=== PATIENT | female | born 1985 | race Two or more races ===

== ENCOUNTER 2017-12-05 15:53 | Inpatient (IN) | payer OTHER ==
[~2017-12-05] VITALS: Ht 165.1 cm; Wt 103.2 kg
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
[2017-12-05] MEDS ORDERED: MORPHINE SULFATE INJ 4 MG/ML DISP.SYRIN ONE ×2 (16:20→18:05)
[2017-12-05] MEDS ORDERED: ONDANSETRON HCL/PF 4 MG/2 ML VIAL ONE (16:20)
[2017-12-05 16:27] LABS: BASOPHILS # (AUTO) 0.1 /CMM (0.0-0.2); BASOPHILS % (AUTO) 0.6 % (0.0-2.0); EOSINOPHILS % (AUTO) 0.8 % (0.0-6.0); HEMATOCRIT 42 % (33-45); HEMOGLOBIN 14.5 g/dL (11.5-14.8); LYMPHOCYTES # (AUTO) 1.5 /CMM (0.8-4.8); LYMPHOCYTES % (AUTO) 15.9 % (20.0-44.0); MEAN CORPUSCULAR HGB CONC 35 g/dl (31.0-36.0); MEAN CORPUSCULAR VOLUME 84 fL (82-100); MONOCYTES # (AUTO) 0.4 /CMM (0.1-1.30); MONOCYTES % (AUTO) 3.9 % (2.0-12.0); NEUTROPHILS % (AUTO) 78.8 % (43.0-81.0); PLATELET COUNT (AUTO) 304 /CMM (150-450); RED BLOOD CELL COUNT(AUTO) 5.01 MIL/uL (4.0-5.2); WHITE BLOOD COUNT (AUTO) 9.1 K/uL (4.3-11.0)
[2017-12-05] MEDS ORDERED: MORPHINE SULFATE INJ 2 MG/ML DISP.SYRIN IV ONE ×2 (16:30→18:30)
[2017-12-05] MEDS ORDERED: IV NS 0.9% 1,000 ML BAG IV ONE (16:30)
[2017-12-05] MEDS ORDERED: ONDANSETRON HCL/PF 4 MG/2 ML VIAL IVP ONE (16:30)
--- NOTE | 2017-12-05 16:30 | NUR ---
IV ACCESS STARTED. BLOOD DRAWN FOR LABS. MEDICATED ORDERED.
[2017-12-05 16:38] LABS: CALCIUM, SERUM 8.8 mg/dL (8.5-10.1); POTASSIUM 4.2 mmol/L (3.5-5.1)
[2017-12-05 16:42] LABS: INR 0.93 (0.85-1.15)
--- NOTE | 2017-12-05 17:05 | NUR ---
PT TAKEN TO CT.
--- NOTE | 2017-12-05 17:51 | NUR ---
PAGED ON-CALL FOR [facility] FOR CONSULT
--- NOTE | 2017-12-05 18:00 | NUR ---
C-SPINE PRECUATIONS IMPLEMENTED.
--- NOTE | 2017-12-05 18:15 | NUR ---
FC INITIATED. WELL TOLERATED.
--- NOTE | 2017-12-05 18:17 | NUR ---
REPORT GIVEN TO FELIX WU FOR MOON MS 204.
--- NOTE | 2017-12-05 18:25 | NUR ---
TAYLER AT BS.
--- NOTE | 2017-12-05 18:45 | NUR ---
RN MS NOTES RECEIVED PT FROM E.R. STAFF VIA REAL, AWAKE, ALERT AND ORIENTED, ASSISTED TO BED, PROPER BODY ALIGNMENT MAINTAINED AT ALL TIMES, NECK COLLAR BRACE IN PLACE, WITH COMPLAINT OF LOW BACK PAIN 01/18, RESPIRATIONS NORMAL AND NOT LABORED ON ROOM AIR, ROOM SET UP ORIENTATION PROVIDED TO PT, VERBALIZED UNDERSTANDING, PT AND STAFF INFORMED THAT PT SHOULD WEAR NECK BRACE COLLAR AT ALL TIMES AND MUST BE FLAT IN BED AT ALL TIMES, F/C IN PLACE AND DRAINING WELL WITH CLEAR, YELLOW URINE, VITAL SIGNS TAKEN AND RECORDED, AWAITING ADMITTING ORDERS FROM .
[2017-12-05] MEDS ORDERED: METH-406 PO (18:46)
--- NOTE | 2017-12-05 18:46 | NUR ---
CALLED ADMITTING NURSE JAZMIN FOR CERVICAL COLLAR TO BE CONTINUED TO BE KEPT IN PLACE.
[2017-12-05 19:08] VITALS: BP 118/82
[2017-12-05] MEDS ORDERED: MORPHINE SULFATE INJ 4 MG/ML DISP.SYRIN IV STA (19:37)
--- NOTE | 2017-12-05 19:40 | NUR ---
MS RN INITIAL NOTE PT IS IN BED AWAKE AND ALERT X4. ABLE TO MAKE NEEDS KNOWN. FAMILY AT BEDSIDE. PT IS IN A CERVICAL COLLAR, ORDERS NOT TO REMOVE CERVICAL COLLAR AND TO KEEP PT IN A FLAT LAYING POSITION UNTIL ORTHO CONSULT. PT IS ABLE TO MOVE ARMS WITH STRONG ARM BUDGET AND POLICY ANALYST AND ABLE TO MOVE TOES WITH STRONG PULSES AND SENSATION. NO SIGNS OF SOB OR DISTRESS, BREATHING EVENLY AND UNLABORED ON RA. COMPLAINTS OF PAIN ON LEFT LOWER BACK. RADIOLOGY HERE TO TAKE PT TO MRI, CALLED BRIANNA HERNÁNDEZ FOR ADMITTING ORDERS AND PAIN MEDS, AWAITING ORDERS TO BE ENTERED TO GIVE MORPHINE BEFORE RADIOLOGY TAKES HER DOWN. BED IS IN LOW AND LOCKED POSITION, CALL LIGHT WITHIN REACH. WILL CONTINUE TO MONITOR PT
[2017-12-05] MEDS ORDERED: MAGNESIUM HYDROXIDE 30 ML UDC PO PRN (20:00)
[2017-12-05] MEDS ORDERED: ONDANSETRON HCL/PF 4 MG/2 ML VIAL IVP PRN (20:00)
[2017-12-05] MEDS ORDERED: ZOLPIDEM TARTRATE 5 MG TABLET PO PRN (20:00)
[2017-12-05] MEDS ORDERED: Z GUARD REMEDY 2 OZ OINT TP PRN (20:00)
[2017-12-05] MEDS ORDERED: LORAZEPAM INJ 2 MG/ML VIAL IV PRN (20:00)
[2017-12-05] MEDS ORDERED: MAG HYDROX/AL HYDROX/SIMETH 30 ML UDC PO PRN (20:00)
[2017-12-05] MEDS ORDERED: MORPHINE SULFATE INJ 2 MG/ML DISP.SYRIN IV PRN (20:00)
[2017-12-05] MEDS ORDERED: ACETAMINOPHEN 325 MG TABLET PO PRN (20:00)
--- NOTE | 2017-12-05 20:00 | NUR ---
MS RN NOTE PT WAS MEDICATED AND TAKEN DOWN BY MRI WITH CERVICAL COLLAR INTACT
[2017-12-05 20:01] VITALS: BP 114/82
--- NOTE | 2017-12-05 22:00 | NUR ---
MS RN NOTE PT RETUNED FROM MRI IN STABLE CONDITION, CERVICAL COLLAR IN PLACE
[2017-12-05] MEDS: IV NS 0.9% 1,000 ML IV PRN (23:23)
[2017-12-06] MEDS: HYDROMORPHONE INJ 2 MG/ML DISP.SYRIN IV PRN ×5 (00:09→19:12)
[2017-12-06 06:27] LABS: BASOPHILS % (AUTO) 0.1 % (0.0-2.0); EOSINOPHILS % (AUTO) 0.3 % (0.0-6.0); HEMATOCRIT 39 % (33-45); HEMOGLOBIN 13.3 g/dL (11.5-14.8); LYMPHOCYTES # (AUTO) 1.1 /CMM (0.8-4.8); LYMPHOCYTES % (AUTO) 10.1 % (20.0-44.0); MEAN CORPUSCULAR HGB CONC 34 g/dl (31.0-36.0); MEAN CORPUSCULAR VOLUME 87 fL (82-100); MONOCYTES # (AUTO) 0.6 /CMM (0.1-1.30); MONOCYTES % (AUTO) 5.6 % (2.0-12.0); NEUTROPHILS # (AUTO) 8.8 /CMM (1.8-8.9); NEUTROPHILS % (AUTO) 83.9 % (43.0-81.0); PLATELET COUNT (AUTO) 254 /CMM (150-450); RED BLOOD CELL COUNT(AUTO) 4.52 MIL/uL (4.0-5.2); WHITE BLOOD COUNT (AUTO) 10.4 K/uL (4.3-11.0)
--- NOTE | 2017-12-06 06:46 | NUR ---
MS RN CLOSING NOTE PT IS IN BED RESTING, FAMILY AT BEDSIDE. NO SIGNS OF SOB OR DISTRESS, BREATHING EVENLY AND UNLABORED ON RA. F/C INTACT AND DRAINING. CERVICAL COLLAR IN PLACE, PT CONTINUES TO LAY FLAT. CONTINUED TO EDUCATE PT ABOUT THE NEED TO LAY FLAT AND MAINTAIN COLLAR IN PLACE. PAIN MANAGED WITH MEDICATION. PENDING ORTHO CONSULT. ALL NEEDS WERE ANTICIPATED AND MET. BED IS IN LOW AND LOCKED POSITION, CALL LIGHT WITHIN REACH. WILL ENDORSE TO DAYSHIFT
[2017-12-06 07:03] LABS: CALCIUM, SERUM 8.1 mg/dL (8.5-10.1); CREATININE 0.6 mg/dL (0.6-1.3); PHOSPHORUS 3.3 mg/dL (2.5-4.9); POTASSIUM 3.9 mmol/L (3.5-5.1)
[2017-12-06 07:06] LABS: THYROID STIMULATING HORMONE 8.468 uIU/mL (0.358-3.74)
--- NOTE | 2017-12-06 07:25 | NUR ---
MS RN OPENING NOTE PT IS IN BED RESTING, EASILY AROUSABLE ABLE TO MAKE NEEDS KNOWN, FAMILY AT BEDSIDE. NO SIGNS OF SOB OR DISTRESS RESPIRATIONS EVEN AND UNLABORED ON RA.IV ACCESS PATENT AND INTACT NO REDNESS OR INFILTRATION F/C INTACT AND DRAINING. CERVICAL COLLAR IN PLACE, PT CONTINUES TO LAY FLAT. CONTINUED TO EDUCATE ABOUT THE NEED TO LAY FLAT AND MAINTAIN COLLAR IN PLACE. PAIN MANAGED WITH MEDICATION ORDERED. PENDING ORTHO CONSULT. ALL NEEDS WERE ANTICIPATED AND MET. BED IS IN LOW AND LOCKED POSITION, CALL LIGHT WITHIN REACH. WILL ENDORSE TO DAYSHIFT Addendum: 12/06/17 at 1837 by CLARE VARNER RN RN NOTES CORRECTION OF ENTRY WILL CONTINUE TO MONITOR PT
[2017-12-06 08:00] VITALS: BP 132/77
[2017-12-06] MEDS: PANTOPRAZOLE 40 MG VIAL IV SCH (08:34)
--- NOTE | 2017-12-06 10:30 | NUR ---
RN NOTES/ORTHO CONSULT PT SEEN AND EXAMINED BY DR. VALLEJO WITH ORDERS WILL CONTINUE TO CARRY OUT MADE MD AWARE OF AWAITING BRACE PER MD TO HOLD AMBULATION AND SITTING UP IN BED UNTIL BRACE AVAILABLE CALLED [facility] AND LEFT MESSAGES WILL CONTINUE TO FOLLOW UP
--- NOTE | 2017-12-06 12:00 | NUR ---
RN NOTES URINE SPECIMEN COLLECTED ORDERED, LAB CALLED FOR DIRECTOR FRAUD WILL CONTINUE TO MONITOR
--- NOTE | 2017-12-06 13:30 | NUR ---
RN NOTES/BACK BRACE F/U PT SEEN AND EXAMINED BY DR. HERNÁNDEZ NOTIFIED OF DR VALLEJO ORDERS WILL CONTINUE TO CARRY OUT MADE MD AWARE OF AWAITING BRACE PER ORTHO TO HOLD AMBULATION AND SITTING UP IN BED UNTIL BRACE AVAILABLE CALLED [facility] AND LEFT MESSAGES MADE DNP AWARE WILL CONTINUE TO FOLLOW UP
[2017-12-06] MEDS: IV NS 0.9% 1,000 ML IV PRN (17:24)
--- NOTE | 2017-12-06 18:37 | NUR ---
MS RN CLOSING NOTE PT IS IN BED RESTING, EASILY AROUSABLE ABLE TO MAKE NEEDS KNOWN, FAMILY AT BEDSIDE. NO SIGNS OF SOB OR DISTRESS, RESPIRATIONS EVEN AND UNLABORED ON RA.IV ACCESS PATENT AND INTACT NO REDNESS OR INFILTRATION F/C INTACT AND DRAINING. CERVICAL COLLAR REMOVED ORDERED, PT ABLE TO TOLERATE HOB AT 45 DEGREE ANGLE. CONTINUED TO EDUCATE ABOUT MOBILITY RESTRICTIONS UNTIL BRACE ARRIVES AND PT EVAL IS COMPLETE. PAIN MANAGED WITH MEDICATION ORDERED. ALL NEEDS WERE ANTICIPATED AND MET. BED IS IN LOW AND LOCKED POSITION, SAFETY MEASURES IN PLACE, CALL LIGHT WITHIN REACH. WILL CONTINUE TO MONITOR AND ENDORSE TO TRANSPORTATION ASSISTANT FOR CONTINUITY OF CARE
--- NOTE | 2017-12-06 19:45 | NUR ---
MS RN INITIAL NOTE PT IS IN BED SLEEPING EASILY AROUSED, PAIN MEDS WERE GIVEN. FAMILY AT BEDSIDE. NO SIGNS OF SOB OR DISTRESS, BREATHING EVENLY AND UNLABORED ON RA. IV ACCESS IS INTACT AND PATENT WITH FLUIDS INFUSING. PT HAS MOBILITY RESTRICTIONS UNTIL BRACE IS RECEIVED. BED IS IN LOW AND LOCKED POSITION, CALL LIGHT WITHIN REACH. WILL CONTINUE TO MONITOR PT.
[2017-12-06 20:00] VITALS: BP 114/66
[2017-12-07] MEDS: HYDROMORPHONE INJ 2 MG/ML DISP.SYRIN IV PRN ×5 (00:41→23:48)
[2017-12-07 06:48] LABS: BASOPHILS % (AUTO) 0.2 % (0.0-2.0); EOSINOPHILS % (AUTO) 0.6 % (0.0-6.0); HEMATOCRIT 39 % (33-45); HEMOGLOBIN 13.4 g/dL (11.5-14.8); LYMPHOCYTES # (AUTO) 1.2 /CMM (0.8-4.8); LYMPHOCYTES % (AUTO) 12.8 % (20.0-44.0); MEAN CORPUSCULAR HGB CONC 34 g/dl (31.0-36.0); MEAN CORPUSCULAR VOLUME 86 fL (82-100); MONOCYTES # (AUTO) 0.5 /CMM (0.1-1.30); MONOCYTES % (AUTO) 4.9 % (2.0-12.0); NEUTROPHILS # (AUTO) 7.9 /CMM (1.8-8.9); NEUTROPHILS % (AUTO) 81.5 % (43.0-81.0); PLATELET COUNT (AUTO) 246 /CMM (150-450); RDW COEFFICIENT OF VARIATION 13.7 (11.5-15.0); RED BLOOD CELL COUNT(AUTO) 4.52 MIL/uL (4.0-5.2); WHITE BLOOD COUNT (AUTO) 9.7 K/uL (4.3-11.0)
--- NOTE | 2017-12-07 06:57 | NUR ---
MS RN CLOSING NOTE PT IS IN BED SLEEPING, EASILY AROUSED. NO SIGNS OF SOB OR DISTRESS, BREATHING EVENLY AND UNLABORED ON RA. MOBILITY RESTRICTIONS IN PLACE. IV IS INTACT AND PATENT WITH FLUIDS INFUSING. SPRINGER CATHETER IS INTACT AND DRAINING. NO ACUTE CHANGES THROUGHOUT THE SHIFT. BED IS IN LOW AND LOCKED POSITION, CALL LIGHT WITHIN REACH. WILL ENDORSE TO DAYSHIFT.
[2017-12-07 07:01] LABS: CALCIUM, SERUM 8.4 mg/dL (8.5-10.1); CREATININE 0.6 mg/dL (0.6-1.3); POTASSIUM 3.9 mmol/L (3.5-5.1)
[2017-12-07 07:18] LABS: INR 0.96 (0.87-1.13)
--- NOTE | 2017-12-07 07:33 | NUR ---
RN OPENING NOTES RECEIVED PATIENT IS IN BED SLEEPING, EASILY AROUSED. BED IN LOW SEMIFOWLERS POSITION. NO SIGNS OF SOB OR DISTRESS, BREATHING EVENLY AND UNLABORED ON RA. MOBILITY RESTRICTIONS IN PLACE. IV IS INTACT AND PATENT WITH FLUIDS INFUSING. SPRINGER CATHETER IS INTACT AND DRAINING. KEPT HER SAFE AND COMFORTABLE. BED IS IN LOW AND LOCKED POSITION, SIDERAILS UP, CALL LIGHT WITHIN REACH. WILL CONTINUE TO MONITOR ACCORDINGLY.
[2017-12-07 08:00] VITALS: BP 118/73
[2017-12-07] MEDS: PANTOPRAZOLE 40 MG VIAL IV SCH (08:43)
--- NOTE | 2017-12-07 09:45 | NUR ---
CALLED [facility] REGARDING THE JEWITT EXTENSION BRACE. SPOKE WITH BERNA, SHE SAID THERE'S NO AVAILABLE SIZE FOR THE PATIENT, THEY HAVE SMALL SIZE ONLY, PATIENT NEEDS LARGE OR X-LARGE. INFORMED CASE MANAGEMENT.
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
--- NOTE | 2017-12-07 10:35 | NUR ---
CALLED [facility], THEY NEED TO MEASURE THE PATIENT. FAXED 'S ORDER. Addendum: 12/07/17 at 1307 by CONOR PEARL VERIFIED WITH KIMI, FAXED FORM RECEIVED. THEY WILL MEASURE PATIENT TODAY
--- NOTE | 2017-12-07 10:43 | NUR ---
RN NOTES NOTIFIED PAYAM DUVALS REGARDING THE BRACE.
[2017-12-07] MEDS: IV NS 0.9% 1,000 ML IV PRN (12:25)
[2017-12-07 16:00] VITALS: BP 123/76
--- NOTE | 2017-12-07 17:17 | NUR ---
RN NOTES NOTIFIED PAYAM BAUMAN NP REGARDING THE TROY BRACE. ORDERS TO MAKE PATIENT WEAR IT UNTIL SHE FOLLOWS UP IN OFFICE WITH DR VALLEJO IN 1-2 WEEKS.
--- NOTE | 2017-12-07 19:27 | NUR ---
RN CLOSING NOTES PATIENT IN STABLE CONDITION. ALL NEEDS ATTENDED AND PROVIDED. BODY BRACE IN PLACE. KEPT PATIENT SAFE AND COMFORTABLE. BED IN LOW, LOCKED POSITION, SIDERAILS UPX2, CALL LIGHT IN REACH. ENDORSED TO NIGHT RN FOR MOON.
--- NOTE | 2017-12-07 19:30 | NUR ---
RN NOTES RECEIVED PATIENT IN BED AWAKE, AO X 3 , ABLE TO MAKE NEEDS KNOWN. NO ACUTE DISTRESS NOTED. MONITORED FOR PAIN. TROY BRACE IN PLACE ON TORSO. SAFETY REMINDERS GIVEN. ON LOW BED WITH BILATERAL UPPER SIDE RAILS UP. CALL MARIN WITHIN EASY REACH. WILL CONTINUE TO MONITOR.
[2017-12-07 20:00] VITALS: BP 117/80
[2017-12-08] MEDS: IV NS 0.9% 1,000 ML IV PRN (02:33)
[2017-12-08] MEDS: HYDROMORPHONE INJ 2 MG/ML DISP.SYRIN IV PRN ×3 (05:25→18:14)
--- NOTE | 2017-12-08 06:22 | NUR ---
RN NOTES PATIENT ASLEEP, EASILY AROUSABLE. RESPIRATIONS EVEN. NO SIGNS OF PAIN NOTED. NEEDS ATTENDED. SAFETY PRECAUTIONS AND COMFORT MEASURES IN PLACE. WILL GIVE REPORT TO DAY SHIFT FOR CONTINUITY OF CARE.
--- NOTE | 2017-12-08 07:30 | NUR ---
RN OPENING NOTES RECEIVED PT. PT IS STABLE AND RESTING IN BED. A/OX4. NO S/S OF RESP DISTRESS OR SOB. PT C/O PAIN 7/10 RADIATING FROM BACK. WILL MANAGE PHARMACOLOGICALLY. FC IN PLACE AND PATENT. PER MD NOTE, PT IS NOT TO SIT UPRIGHT AT 90 DEGREES AND TO AVOID ANTICOAGULANT MX. SAFETY MEASURES IN PLACE, CALL LIGHT WITHIN REACH. WILL CONTINUE TO MONITOR.
[2017-12-08 08:00] VITALS: BP 122/75
[2017-12-08] MEDS: PANTOPRAZOLE 40 MG VIAL IV SCH (08:15)
[2017-12-08] MEDS: HYDROCODONE/APAP 5/325MG 1 EACH TABLET PO PRN ×2 (08:23→19:22)
[2017-12-08 09:00] VITALS: BP 122/75
--- NOTE | 2017-12-08 11:10 | NUR ---
SW met with pt. bedside again to inquire if the family is homeless. Pt. informed SW that they are not homeless. They live in [place] and will be going back to [place] once pt. is medically cleared for discharge. Pt. did not want any resources at this time.
[2017-12-08] MEDS ORDERED: NAPR-1164 PO (12:21)
[2017-12-08] MEDS ORDERED: METH500T PO (12:21)
[2017-12-08] MEDS: DOCUSATE SODIUM 100 MG CAPSULE PO SCH (14:56)
[2017-12-08 16:00] VITALS: BP 123/68
--- NOTE | 2017-12-08 18:51 | NUR ---
RN CLOSING NOTES PATIENT AWAKE ALERT AND VERBALLY RESPONSIVE. RESPIRATIONS EVEN. NO SIGNS OF PAIN NOTED. NEEDS ATTENDED. SAFETY PRECAUTIONS AND COMFORT MEASURES IN PLACE. WILL GIVE REPORT TO QUARRY SUPERVISOR OPEN PIT FOR CONTINUITY OF CARE.
--- NOTE | 2017-12-08 19:30 | NUR ---
RECEIVED PATIENT IN BED AWAKE, AO X 3 , ABLE TO MAKE NEEDS KNOWN. NO ACUTE DISTRESS NOTED. MONITORED FOR PAIN. TROY BRACE IN PLACE ON TORSO. IV SITE PATENT, INTACT; IVF INFUSING ORDERED. SAFETY REMINDERS GIVEN. ON LOW BED WITH BILATERAL UPPER SIDE RAILS UP. CALL MARIN WITHIN EASY REACH. WILL CONTINUE TO MONITOR. FAMILY AT BEDSIDE.
[2017-12-08 20:00] VITALS: BP 106/72
[2017-12-09] MEDS: HYDROMORPHONE INJ 2 MG/ML DISP.SYRIN IV PRN ×4 (00:51→18:01)
[2017-12-09] MEDS: IV NS 0.9% 1,000 ML IV PRN (03:56)
--- NOTE | 2017-12-09 06:12 | NUR ---
PATIENT ASLEEP, EASILY AROUSABLE. RESPIRATIONS EVEN. NO SIGNS OF PAIN NOTED. NEEDS ATTENDED. KEPT CLEAN, DRY, AND COMFORTABLE. SAFETY PRECAUTIONS AND COMFORT MEASURES IN PLACE. WILL GIVE REPORT TO DAY SHIFT FOR CONTINUITY OF CARE.
--- NOTE | 2017-12-09 07:43 | NUR ---
MS RN OPENING NOTE PATIENT IS ALERT AND ORIENTED x4. PATIENT STATES 5/10 PAIN ON BACK AREA, PATIENT REQUESTING MEDICATION. PAIN MEDS TO BE GIVEN. ABLE TO COMMUNICATE NEEDS. IV INTACT AND PATENT WITH IV FLUIDS RUNNING AT THIS TIME AT 75 ML/HR TOLERATING WELL. NO SOB OR DISTRESS NOTED. TO WEAR TROY BRACE AT ALL TIMES. AWAITING DISCHARGE UNTIL FAMILY COMES TO PICK PATIENT UP. WILL CONTINUE TO MONITOR THROUGHOUT SHIFT
[2017-12-09 08:00] VITALS: BP 113/58
[2017-12-09] MEDS: DOCUSATE SODIUM 100 MG CAPSULE PO SCH (08:05)
[2017-12-09] MEDS: PANTOPRAZOLE 40 MG VIAL IV SCH (08:05)
--- NOTE | 2017-12-09 08:06 | NUR ---
MS RN NOTE PATIENT REQUESTED PAIN MEDICATION. PAIN NOW 8/10 IN BACK UPON CHANGING POSITIONS. DILAUDID 1MG GIVEN. WILL REASSESS PAIN.
--- NOTE | 2017-12-09 08:45 | NUR ---
MS RN NOTE PATIENT REPORTS 3/10 PAIN. PAIN MEDICATION EFFECTIVE. WILL CONTINUE TO MONITOR
[2017-12-09 16:00] VITALS: BP 118/71
--- NOTE | 2017-12-09 18:29 | NUR ---
MS RN CLOSING NOTE PATIENT IS ALERT AND ORIENTED x4. AWAITING FOR TRANSPORTATION TO GO BACK HOME TO [place]. ALL DUE MEDICATIONS GIVEN ORDERED. ALL NURSING CARE NEEDS ATTENDED TO NEEDED. IV INTACT AND PATENT NO REDNESS OR SWELLING NOTED. ABLE TO COMMUNICATE NEEDS. CALL LIGHT WITHIN REACH AT ALL TIMES AND SAFETY MEASURES IMPLEMENTED. BRACE TO BE WORN AT ALL TIMES. PATIENT STATED 9/10 BACK PAIN, PAIN MEDICATION GIVEN. WILL ENDORSE TO MATERIAL MOVERS NURSE FOR MOON
--- NOTE | 2017-12-09 19:40 | NUR ---
MS RN INITIAL NOTE PT IS IN BED RESTING, WITH BACK BRACE ON. NO SIGNS OF SOB OR DISTRESS, BREATHING EVENLY AND UNLABORED. PT AWAITING FUNCTIONAL SUPPORT ANALYST FROM FAMILY TO GO HOME. ALL DISCHARGE PAPERWORK AND INSTRUCTIONS WERE GIVEN TO PT BY DAYSHIFT. WHEN OVER D/C PAPERWORK AGAIN WITH PT. WILL CONTINUE TO MONITOR PT
--- NOTE | 2017-12-09 20:45 | NUR ---
DISCHARGE NOTE PT FAMILY CAME FOR TOW DRIVER. IV AND NAME BAND WERE REMOVED. PT IS IN STABLE CONDITION. ALL BELONGINGS ARE ACCOUNTED FOR. DISCHARGE PAPERWORK IN PTS HANDS. WHEELCHAIR WAS USED BY ELECTRICAL SERVICE TECHNICIAN TO TAKE PT DOWN TO FAMILY.
[2017-12-09 21:46] VITALS: BP 112/61
== END 2017-12-09 20:45 | disposition home or self-care (01) | DRG 347 ==
LOC: ER 15:54 → MEDSG2 18:37
PROVIDERS: ADMIT Hospitalist; ATTEND Hospitalist
DX: S22.081A Stable burst fracture of T11-T12 vertebra, initial encounter for closed fracture (principal); E87.1 Hypo-osmolality and hyponatremia; M41.9 Scoliosis, unspecified; K80.20 Calculus of gallbladder without cholecystitis without obstruction; V69.9XXA Occupant (driver) (passenger) of heavy transport vehicle injured in unspecified traffic accident, initial encounter; Y92.410 Unspecified street and highway as the place of occurrence of the external cause; M48.04 Spinal stenosis, thoracic region; R73.9 Hyperglycemia, unspecified; N83.201 Unspecified ovarian cyst, right side; N20.0 Calculus of kidney; Y93.9 Activity, unspecified; M54.5 Low back pain
CPT/HCPCS: 36415; 71045-TC; 72040-TC; 72146-TC; 72148-TC; 80048-TC; 80061-TC; 83735-TC; 84100-TC; 84439-TC; 84443-TC; 84703-TC; 85025-TC; 85730-TC; 87081-TC; A4606; C9113; J1170; J2270; J2405; J7030; L0172; Z7610